=== PATIENT | male | born 1985 | race Caucasian/White ===

== ENCOUNTER 2023-02-10 18:21 | Outpatient (CLI) | payer SELFPAY | END 2023-02-10 18:22 | disposition home or self-care (01) | LOC: AMB 02-14 10:20 | PROVIDERS: PCP Nurse Practitioner Family; Visit Provider Emergency Medicine Emergency Medical Services | DX: R41.82 Altered mental status, unspecified (principal); F10.129 Alcohol abuse with intoxication, unspecified | CPT/HCPCS: A0425; A0427 ==

== ENCOUNTER 2023-02-10 18:46 | Emergency (ER) | payer SELFPAY ==
[2023-02-10 19:10] VITALS: BP 160/111; PULSE 110; RESP 16; TEMP 36.6; O2SAT 97
--- NOTE | 2023-02-10 19:15 | ED.NURSE ---
Addendum entered by Víctor Gonzales RN 02/10/23 20:05: Pt wound on L forearm bandaged with gauze and coban. Blood cleaned off of pt's arm and hand. Original Note: Pt self-removed IV in room. Catheter examined, intact. Pt permitted staff to bandage his wound.
[2023-02-10 19:24] LABS: Amphetamine Screen Urine Negative (Negative); Barbiturate Screen Urine Negative (Negative); Benzodiazepines Screen Urine Negative (Negative); Cannabinoid Screen Urine POSITIVE (Negative); Cocaine Screen Urine Negative (Negative); Methadone Screen Urine Negative (Negative); Methamphetamines Screen Urine Negative (Negative); Opiate Screen Urine Negative (Negative); Oxycodone Screen Urine Negative (Negative); Phencyclidine Screen Urine Negative (Negative); Tricyclic Antidepressant Urine Negative (Negative)
--- NOTE | 2023-02-10 19:42 | ED.NURSE ---
pt refused blood draw. reason:fear of needles
--- NOTE | 2023-02-10 19:50 | ED.NURSE ---
Pt's mother arrived to take pt home. MD Aviles in room to speak with pt and pt's mother about discharge.
--- NOTE | 2023-02-10 20:02 | ED.ALCOHOL ---
HPI - Alcohol General Date Seen: 02/10/23 Chief Complaint: Alcohol/Intoxication Stated Complaint: ETOH Time Seen by Provider: 02/10/23 18:51 History of Present Illness HPI narrative: This is a pleasant 37-year-old male who is brought to the ER today by EMS. He was apparently found unconscious in a local park. He was difficult to arouse but did arouse to sternal rub per police. Per report he is a employee at the local [employer]. He apparently stated had a few too many drinks today after work. He was apparently walking home and then laid down at the park. He was found on the ground unresponsive. After being aroused by sternal rub he was intoxicated, slurring his speech, and swelling on his feet, showing signs of alcohol intoxication. There were no other signs of trauma. 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 No sign that he was stabbed were cut. The patient has no complaints. He is apprised to be here in the ER and says he was planning on going home. [facility] Social History (System 03/04/22 @ 12:17 by Bernadette Jennings) Smoking Status: Unknown if ever smoked Exam Narrative: Exam Narrative: Constitutional: I initially encountered this patient standing in the hallway outside of his room. He just arrived by EMS and was waiting in the hallway because he needed to go to the bathroom to urinate. He was alert. Speech was slurred. He was swinging on his feet consistent with alcohol consumption. He is otherwise cooperative and positive. He is generally well-developed and well-nourished. Alert. Speech is slurred but he is conversant. HENT: Head: Atraumatic. Nose: Nose normal. Glasses are on broken. No epistaxis. Mouth/Throat: Oral mucosa is clear and moist. no trismus. Pharynx normal. Tonsils symmetric. No tonsillar enlargement, erythema, or exudate. Eyes: Conjunctivae normal. EOM normal. Pupils equal, round, and reactive to light. No scleral icterus. Neck: Normal range of motion. Neck supple. No tracheal deviation present. Cardiovascular: Normal rate, regular rhythm. No gallop. No friction rub. No murmur heard. He has an IV in his forearm that had been placed by EMS. Pulmonary/Chest: Effort normal. No stridor. No respiratory distress. No wheezes. No rales. No rhonchi . No tenderness. Abdominal: Soft. No distension. No mass. No tenderness. No rebound. No guarding. Musculoskeletal: RUE: Normal range of motion. No tenderness. No deformity LUE: Normal range of motion. No tenderness. No deformity RLE: Normal range of motion. No edema. No tenderness. No deformity LLE: Normal range of motion. No edema. No tenderness. No deformity Neurological: Alert and oriented to person, place, but not time of day. Normal strength. CN II-VII intact. No sensory deficit. GCS eye subscore is 4. GCS verbal subscore is 5. GCS motor subscore is 6. Normal coordination Skin: Skin is warm and dry. No rash noted. No pallor. Normal capillary refill. Psychiatric: Slurred speech, consistent with alcohol intoxication. Does report heavy alcohol consumption today. As above he declines referral for alcohol treatment. He does not think he has a problem with drinking. He denies other drug use. He says he does not want to harm himself or anyone else. He just wants to go home. Const: Vital Signs, click to edit/add: Vital Signs - 24 hr 02/10/23 19:10 Temperature 97.8 F Pulse Rate [Pulse Oximeter] 110 H Respiratory Rate 16 Blood Pressure [Ri ght Upper Arm] 160/111 H Pulse Oximetry 97 Oxygen Delivery Me thod Room Air Course Vital Signs Vital signs: Initial Vital Signs Temperature 97.8 F 02/10/23 19:10 Temperature Source Temporal Artery Scan 02/10/23 19:10 Pulse Rate 110 H 02/10/23 19:10 Respiratory Rate 16 02/10/23 19:10 Blood Pressure 160/111 H 02/10/23 19:10 Blood Pressure Mean 127 H 02/10/23 19:10 Blood Pressure Position Sitting 02/10/23 19:10 Pulse Oximetry 97 02/10/23 19:10 Oxygen Delivery Method Room Air 02/10/23 19:10 Vital Signs Temperature 97.8 F 02/10/23 19:10 Pulse Rate 110 H 02/10/23 19:10 Respiratory Rate 16 02/10/23 19:10 Blood Pressure 160/111 H 02/10/23 19:10 Pulse Oximetry 97 02/10/23 19:10 Oxygen Delivery Method Room Air 02/10/23 19:10 Temperature 97.8 F 02/10/23 19:10 Pulse Rate 110 H 02/10/23 19:10 Respiratory Rate 16 02/10/23 19:10 Blood Pressure 160/111 H 02/10/23 19:10 Pulse Oximetry 97 02/10/23 19:10 Oxygen Delivery Method Room Air 02/10/23 19:10 MDM - Alcohol MDM Narrative Medical decision making narrative: This is a 37-year-old male brought to the ER today with altered mental status. He was apparently found unresponsive on the ground at the park today. He responded to sternal rub per EMS and is now showing signs of alcohol intoxication. Per report he had several drinks at work at the [employer] today. The patient denies any other drug use. There are no signs of assault. Differential here is broad including hypoglycemia, postictal spells seizure, head trauma, drug or alcohol intoxication, among others. Clinical presentation is most consistent with alcohol intoxication. Patient does report heavy alcohol consumption this afternoon (but can not remember how many drinks he had). When asked if he has any waking call for her ride, he gives us his girlfriend's phone number (but this remember 2 digits). We were able to find her number in the electronic health record. We called her and left a voicemail. Subsequently the patient was able to call his mother and she came here to the ER. She is willing to take him home and monitor him until he is sober. I ordered laboratory workup to check electrolytes, sodium, alcohol level, among others but the patient declined. Shortly thereafter his mother arrived. She is comfortable taking him home and monitoring. Therefore will not force him to have lab draw against his well. At this point with no external signs of head trauma an alternative explanation for his presentation (alcohol) will hold off on head CT. Discussed expected course of sobering with the patient's mother. She is comfortable monitoring him at home. Precautions for return to the ER reviewed. Questions answered. The patient and I,( and then the patient, his mother, and I) also discussed potential alcohol abuse. I recommended treatment. The patient is declining any offer resources. He does not want to go to detox or into treatment. He is provided with resources for discharge. He is invited to return to the ER if he does want to discuss options. I also Recommended outpatient follow-up with his primary care provider as well. Lab Data Labs: Lab Results 02/10/23 Range/Units 19:10 Urine Opiates Screen Negative (Negative) Ur Oxycodone Screen Negative (Negative) Urine Methadone Screen Negative (Negative) Ur Propoxyphene Screen Negative (Negative) Ur Barbiturates Screen Negative (Negative) U Tricyclic Antidepress Negative (Negative) Ur Phencyclidine Scrn Negative (Negative) Ur Amphetamines Screen Negative (Negative) U Methamphetamines Scrn Negative (Negative) U Benzodiazepines Scrn Negative (Negative) Urine Cocaine Screen Negative (Negative) U Marijuana (THC) Screen POSITIVE A (Negative) Ur Drug Screen Comment See Note Discharge Plan Discharge Clinical Impression: Alcoholic intoxication Patient Disposition: Home w/ Parent or Adult Condition: Stable Instructions: Abuse of Alcohol (DC), Alcohol Use Disorder (ED) Additional Instructions: Please come back to the ER right away if you have any concerns especially has unusual lethargy, confusion, seizures, or other concerning behavior. Please use the resources that the nurses provided to you for alcohol treatment. Remember you can come back to the ER any time if you need help. Please follow-up with your regular doctor, or call the [facility] to arrange a follow-up appointment within 1-2 weeks. Follow Up/Referrals: Ashlie Sanchez NP [Primary Care Provider] - Stand Alone Forms: [employer] [facility] Info Instructions
== END 2023-02-10 20:10 | disposition home or self-care (01) ==
LOC: ED 20:04
PROVIDERS: Emergency Provider Emergency Medicine; PCP Nurse Practitioner Family
DX: F10.129 Alcohol abuse with intoxication, unspecified (principal)
CPT/HCPCS: 80053; 80306; 82077; 83735; 85025; 99282; 99283

== ENCOUNTER 2023-05-23 00:15 | Outpatient (CLI) | payer OTHER, SELFPAY | END 2023-05-23 00:16 | disposition home or self-care (01) | LOC: AMB 05-24 10:08 | PROVIDERS: PCP Nurse Practitioner Family; Visit Provider Family Medicine | DX: F10.129 Alcohol abuse with intoxication, unspecified (principal) | CPT/HCPCS: A0425; A0429 ==

== ENCOUNTER 2023-05-23 00:58 | Emergency (ER) | payer OTHER, SELFPAY ==
[2023-05-23 01:02] VITALS: BP 146/115; PULSE 75; RESP 16; TEMP 36.3; O2SAT 95
--- NOTE | 2023-05-23 01:34 | ED.NURSE ---
patient blew at 0.4. patient called his mother to come pick him up, states that he doesnt want to go to detox right now. MD nam notified.
--- NOTE | 2023-05-23 01:50 | ED.NURSE ---
patients mother johan here to pick him up
--- NOTE | 2023-05-23 02:26 | ED.GENADULT ---
HPI - General Adult General Chief complaint: Alcohol/Intoxication Stated complaint: alcohol intoxication Time Seen by Provider: 05/23/23 01:01 Source: patient, EMS and police Mode of arrival: EMS History of Present Illness HPI narrative: Patient was found passed out in a park about a block away from home tonight. He was arousable with no signs of trauma or injury. Poly suspect that he left a bar after drinking and was attempting to walk home when he stop to rest and passed out. Blood alcohol level on the scene through a Breathalyzer test was 0.4. He has had prior alcohol-related visits to the emergency department. He denies any suicidal thoughts. Reports no trauma or injury tonight. 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 He initially told me that he was interested in alcohol treatment. It would be willing to go to detox. He did change his mind after our interview. He has never been treated for alcohol withdrawal or been through any type of alcohol rehabilitation facility in the past. He does admit to near daily marijuana use. Here is is alcohol of choice, drinking about a 12 pack per day most days. He denies legal problems. He denies any chronic long-term illness. He reports that he has been treated many years ago for his anxiety with benzodiazepines and he no longer has a prescription for those medications but did find them helpful. He denies any other substance use. He is not currently under physician care for any condition. No recent surgery or signs of acute illness. Appetite has been good. No history of organ dysfunction. No history of seizures. He denies any suicidal thoughts. Past medical history benign per his report, no major long-term health problems no prescriptions are allergies. Heavy alcohol use and daily marijuana as stated above. ROS is notable for the alcohol use with initial desire for treatment which he now declines. Related Data Home Medications Medication Instructions Recorded Confirmed No Known Home Medications 05/23/23 05/23/23 Allergies Allergy/AdvReac Type Severity Reaction Status Date / Time No Known Drug Allergies Allergy Verified 05/23/23 01:06 [facility] Social History Smoking Status: Unknown if ever smoked Exam Const: Vital Signs, click to edit/add: Vital Signs - 24 hr 05/23/23 01:02 Temperature 97.3 F L Pulse Rate [Left P ulse Oximeter] 75 Respiratory Rate 16 Blood Pressure [Ri ght Upper Arm] 146/115 H Pulse Oximetry 95 Oxygen Delivery Me thod Room Air Documenting provider has reviewed patient's vital signs: yes Common normals: no apparent distress and alert General appearance: cooperative Orientation/consciousness: Yes awake Other: Appears well nourished and well hydrated. Clothes are very mildly disheveled grooming moderate. A&O x3, answers questions appropriately. No signs of psychosis. Denies any severe depression. HENMT: Common normals: normocephalic and head/scalp atraumatic Head and scalp: normocephalic and atraumatic Face and sinus: normal facial exam Mouth: oral and palatal mucosa normal Throat: posterior oropharynx normal Eye: Common normals: PERRL, EOMs intact bilaterally and conjunctivae normal General eye: normal appearance of both eyes Conjunctiva: conjunctiva(e) normal Pupil: PERRL Neck & C-Spine: Common normals: full ROM and no lymphadenopathy Resp: Common normals: normal respiratory effort, no use of accessory muscles and clear to auscultation bilaterally Effort & inspection: able to speak in complete sentences Auscultation: clear to auscultation bilaterally Cardio: Common normals: regular rate, regular rhythm, S1 normal heart sound, S2 normal heart sound and no murmurs Rate: regular rate Rhythm: regular rhythm Heart sounds: S1 normal and S2 normal GI: Common normals: Normal to inspection, nondistended, normoactive bowel sounds present, soft to palpation, non-tender, no hepatosplenomegaly and no masses Palpation: soft and no hepatosplenomegaly Other: Liver not palpably enlarged Extremity: Common normals: normal to inspection and normal capillary refill Neuro: Common normals: moves all extremities and no focal motor deficits Sensorium/orientation: awake and alert Speech: speech normal Psych: Attitude: calm Insight: fair Judgement: fair Skin: Common normals: no rashes or lesions noted Narrative: No signs of occult trauma or injury. General skin exam: no rashes or lesions noted Course Course ED Course: Alcohol level 0.4 but no signs of respiratory compromise. Patient initially interested in detox and then declines. He is not medically holdable at this time and sending him to detox in voluntarily is not a good use of resources or his time. Counseled patient that if he can be discharged with a responsible adult that he is allowed to leave the facility. He calls his mother and she is able to pick him up with the understanding that he should come back to the ED if there is any further sign of compromise. Vital Signs Vital signs: Initial Vital Signs Temperature 97.3 F L 05/23/23 01:02 Temperature Source Temporal Artery Scan 05/23/23 01:02 Pulse Rate 75 05/23/23 01:02 Respiratory Rate 16 05/23/23 01:02 Blood Pressure 146/115 H 05/23/23 01:02 Blood Pressure Mean 125 H 05/23/23 01:02 Pulse Oximetry 95 05/23/23 01:02 Oxygen Delivery Method Room Air 05/23/23 01:02 Vital Signs Temperature 97.3 F L 05/23/23 01:02 Pulse Rate 75 05/23/23 01:02 Respiratory Rate 16 05/23/23 01:02 Blood Pressure 146/115 H 05/23/23 01:02 Pulse Oximetry 95 05/23/23 01:02 Oxygen Delivery Method Room Air 05/23/23 01:02 Temperature 97.3 F L 05/23/23 01:02 Pulse Rate 75 05/23/23 01:02 Respiratory Rate 16 05/23/23 01:02 Blood Pressure 146/115 H 05/23/23 01:02 Pulse Oximetry 95 05/23/23 01:02 Oxygen Delivery Method Room Air 05/23/23 01:02 Discharge Plan Discharge Clinical Impression: Alcoholic intoxication Patient Disposition: Home w/ Parent or Adult Condition: Stable Instructions: Alcohol Intoxication (ED) Additional Instructions: As we discussed, your a good candidate to go to a detox facility. You are not interested at this time. Those facilities are only successful for people that are willing to go there voluntarily. You do not meet meet criteria to be court ordered at this time. I do significantly recommend that you pursue employment away from alcohol and that you cut down on your drinking as it is starting to adversely affect your health. You may call [facility] for further assistance regarding an outpatient alcohol treatment program if you are interested. Activity Level: Activity as Tolerated Discharge Diet: Regular Prescriptions: No Action No Known Home Medications Follow Up/Referrals: Ashlie Sanchez NP [Primary Care Provider] - Stand Alone Forms: [employer] Info Instructions
== END 2023-05-23 01:50 | disposition home or self-care (01) ==
PROVIDERS: Emergency Provider Family Medicine; PCP Nurse Practitioner Family
DX: F10.129 Alcohol abuse with intoxication, unspecified (principal)
CPT/HCPCS: 99283

== ENCOUNTER 2024-05-29 07:26 | Outpatient (CLI) | payer MEDICAID, SELFPAY | END 2024-05-29 07:27 | disposition home or self-care (01) | PROVIDERS: PCP Nurse Practitioner Family; Visit Provider Family Medicine | DX: M54.16 Radiculopathy, lumbar region (principal); M51.369 Other intervertebral disc degeneration, lumbar region without mention of lumbar back pain or lower extremity pain | CPT/HCPCS: 62323; J0702; Q9966 ==

== ENCOUNTER 2024-11-13 07:32 | Outpatient (CLI) | payer MEDICAID, SELFPAY | END 2024-11-13 07:33 | disposition home or self-care (01) | LOC: INJ CL 07:34 | PROVIDERS: PCP Nurse Practitioner Family; Visit Provider Family Medicine | DX: M54.16 Radiculopathy, lumbar region (principal); M51.369 Other intervertebral disc degeneration, lumbar region without mention of lumbar back pain or lower extremity pain | CPT/HCPCS: 62323; J0702; Q9966 ==

== ENCOUNTER 2025-06-21 10:53 | Outpatient (CLI) | payer MEDICAID, SELFPAY | END 2025-06-21 10:54 | disposition home or self-care (01) | LOC: INJ CL 10:55 | PROVIDERS: PCP Student in an Organized Health Care Education/Training Program; Visit Provider Family Medicine | DX: M54.16 Radiculopathy, lumbar region (principal); M51.369 Other intervertebral disc degeneration, lumbar region without mention of lumbar back pain or lower extremity pain | CPT/HCPCS: 62323; Q9966 ==